=== PATIENT | male | born 1950 | race Caucasian/White ===

== ENCOUNTER 2016-10-24 10:47 | Day surgery (SDC) | payer MEDICARE, OTHER ==
[~2016-10-24 10:47] MED LIST: KETOROLAC TROMETHAMINE 0.45% 4 DROP/0.4 ML DROPERETTE OS PRN
[2016-10-24] MEDS ORDERED: EPINEPHRINE INJ/PF 1 MG/1 ML AMPULE ONE (11:04)
[2016-10-24] MEDS ORDERED: LIDOCAINE 1% INJ-PF (10 MG/ML) 30 ML SDV ONE (11:04)
[2016-10-24] MEDS ORDERED: CHONDR SU A NA/HYALUR INTRAOC KIT (SURGICARE) ONE (11:04)
[2016-10-24] MEDS ORDERED: TOBRAMYCIN SULFATE/DEXAMETH OPH OINTMENT 3.5 GM ONE (11:04)
[2016-10-24] MEDS: CYCLOPENTOLATE 0.2%/PHENYLEPHRINE 1% OPH SOLN 2 ML OS PRN ×3 (11:11→11:31)
[2016-10-24] MEDS: BESIFLOXACIN HCL 0.6% OPH SUSP 5 ML BOTTLE OS PRN ×3 (11:11→12:06)
[2016-10-24] MEDS: TROPICAMIDE 1% OPH SOLN 3 ML OS PRN ×3 (11:11→11:31)
[2016-10-24] MEDS: LIDOCAINE 3.5% OPH GEL/PF 1 ML/TUBE OS PRN ×3 (11:12→11:56)
[2016-10-24] MEDS ORDERED: FENTANYL CITRATE INJ/PF 100 MCG/2 ML AMPUL ONE (11:27)
[2016-10-24] MEDS ORDERED: MIDAZOLAM 2 MG/2 ML INJ ONE (11:27)
== END 2016-10-24 12:45 | disposition home or self-care (01) ==
LOC: SC 10:47
PROVIDERS: ATTEND Ophthalmology
PROC: 08RK3JZ Replacement of Left Lens with Synthetic Substitute, Percutaneous Approach (ICD-10-PCS; principal; 2016-10-24 11:30)
DX: H25.12 Age-related nuclear cataract, left eye (principal); I10 Essential (primary) hypertension; C61 Malignant neoplasm of prostate; Z87.891 Personal history of nicotine dependence
CPT/HCPCS: 66984; V2788; J2250; J3490 ×3; A9270 ×2; J0171; J3010; 142